=== PATIENT | male | born 1980 | race African-American/Black ===

== ENCOUNTER 2022-08-23 18:16 | Emergency (ER) | payer OTHER ==
[2022-08-23] MEDS ORDERED: HYDROmorphone 1 MG/ML 1 ML SYRINGE IVP STA (18:22)
[2022-08-23] MEDS ORDERED: SODIUM CHLORIDE 0.9% 1,000 ML IV STA (18:22)
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
[2022-08-23 18:38] VITALS: BP 148/92; PULSE 73; TEMP 98.3
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
--- NOTE | 2022-08-23 18:56 | XR ---
EXAMINATION TYPE: XR chest 1V portable DATE OF EXAM: 08/23/2022 COMPARISON: None INDICATION: Trauma, pain TECHNIQUE: Single frontal view of the chest is obtained. FINDINGS: The heart size is normal. The pulmonary vasculature is normal. The lungs are clear. No pneumothorax is evident. No acute osseous abnormality evident. IMPRESSION: 1. No acute pulmonary process.
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
[2022-08-23 19:09] LABS: ALT 24 U/L (4-49); AST 30 U/L (17-59); African American GFR (CKD) >90 (>60 ml/min/1.73 sqM); Albumin 4.4 g/dL (3.5-5.0); Alcohol <10 mg/dL; Alkaline Phosphatase 93 U/L (38-126); Anion Gap 11 mmol/L; Blood Urea Nitrogen 14 mg/dL (9-20); Calcium 9.6 mg/dL (8.4-10.2); Carbon Dioxide 26 mmol/L (22-30); Chloride 103 mmol/L (98-107); Glucose 167 mg/dL (74-99); Non-African American GFR(CKD) >90 (>60 ml/min/1.73 sqM); Partial Thromboplastin Time 22.4 sec (22.0-30.0); Potassium 3.9 mmol/L (3.5-5.1); Prothrombin Time 10.9 sec (9.0-12.0); Sodium 140 mmol/L (137-145); Total Bilirubin 0.8 mg/dL (0.2-1.3); Total Protein 7.9 g/dL (6.3-8.2)
[2022-08-23 19:17] LABS: Basophils % (A) 0 %; Eosinophils # (A) 0.2 k/uL (0-0.7); Eosinophils % (A) 3 %; HCT 50.1 % (39.0-53.0); HGB 16.7 gm/dL (13.0-17.5); Lymphocytes # (A) 2.1 k/uL (1.0-4.8); Lymphocytes % (A) 39 %; MCH 30.6 pg (25.0-35.0); MCHC 33.4 g/dL (31.0-37.0); MCV 91.5 fL (80.0-100.0); Mean Platelet Volume 7.8; Monocytes # (A) 0.3 k/uL (0-1.0); Monocytes % (A) 6 %; Neutrophils # (A) 2.7 k/uL (1.3-7.7); Neutrophils % (A) 49 %; Platelet Count 205 k/uL (150-450); RBC 5.47 m/uL (4.30-5.90); WBC 5.4 k/uL (3.8-10.6)
[2022-08-23 20:01] VITALS: RESP 20
== END 2022-08-23 20:01 | disposition home or self-care (01) ==
LOC: EC 18:16
DX: S06.0XAA Concussion with loss of consciousness status unknown, initial encounter (principal); R40.2410 Glasgow coma scale score 13-15, unspecified time; I10 Essential (primary) hypertension; F12.90 Cannabis use, unspecified, uncomplicated; F17.200 Nicotine dependence, unspecified, uncomplicated; W26.8XXA Contact with other sharp object(s), not elsewhere classified, initial encounter; Y93.E5 Activity, floor mopping and cleaning
CPT/HCPCS: 93005; 86900; 86901; 80053; 85025; 85610; 85730; 86850; 72170; 71045; 72125; 70450; 99284; 96374; 96361; G0480; J1170; 36415; 80320